=== PATIENT | female | born 1995 | race Caucasian/White ===

== ENCOUNTER 2023-09-24 05:29 | Emergency (ER) | payer BC, SELFPAY ==
[2023-09-24 05:38] VITALS: BP 145/96; PULSE 86; RESP 18; TEMP 36.6; O2SAT 99; BMI 50.2
[2023-09-24 06:07] VITALS: TEMP 36.6
[2023-09-24] MEDS: HYDROCODONE-ACETAMIN 5-325 MG 1 TAB PO (06:07)
[2023-09-24] MEDS: predniSONE 10 MG TABLET 20 MG PO (06:08)
[2023-09-24] MEDS: GABAPENTIN 300 MG CAPSULE PO (06:08)
--- NOTE | 2023-09-24 06:14 | ED_ITS ---
HPI - General Adult General Chief complaint: Back Injury/Pain Stated complaint: back pain Time Seen by Provider: 09/24/23 05:44 Source: patient Mode of arrival: ambulatory Limitations: no limitations History of Present Illness HPI narrative: 28-year-old female presents the emergency department with increased pain in her lower back radiating to the left leg. This has been an ongoing problem for the past 6 weeks. She has been evaluated by both her primary care provider and also her specialist at [facility]. She reports that she has had an MRI which has shown inflammation at L4-L5 on the left side which does match with her symptoms. She reports that she has been prescribed cyclobenzaprine and Celebrex which she has been taking. Pain started to increase yesterday evening and is worse this morning. Feels like she cannot function and go to work today. No loss of bowel or bladder control, no weakness in the leg, no numbness or tingling. Radicular pain is similar to what she was experiencing when the pain 1st started. On specific questioning, it sounds as though she was on prednisone and also some gabapentin earlier on in the course of the injury but as her pain started to improve a couple of weeks ago, she discontinued these. She was also given some oxycodone early in the illness and is out of those as well. She did not try taking any Tylenol or any other interventions prior to coming to the ED today. Of note it looks like she has been using the new [place] [facility], but not in the last few weeks. Does not look like she has been getting narcotic prescriptions from anyone in the last few weeks. No new trauma or injury that set things off in the last few days. Past medical history notable for PCOS and mood disorder. Reports that her home meds are lamotrigine 100 b.i.d., Celebrex and cyclobenzaprine. Last use of the cyclobenzaprine was last night, typically only using every few days. Nonsmoker. ROS notable for the musculoskeletal symptoms as described above. Otherwise neg ative for other musculoskeletal, generalized, skin or neurological changes. Related Data Home Medications Medication Instructions Recorded Confirmed celecoxib 100 mg capsule 100 mg PO BID PRN 09/24/23 09/24/23 cyclobenzaprine 5 mg tablet 5 - 10 mg PO 3XD PRN 09/24/23 09/24/23 lamotrigine 100 mg tablet 100 mg PO BID 09/24/23 09/24/23 Previous Rx's Medication Instructions Recorded gabapentin 300 mg capsule 300 mg PO BID PRN nerve pain #50 09/24/23 caps prednisone 20 mg tablet 20 mg PO DAILY 3 days #3 tabs 09/24/23 Allergies Allergy/AdvReac Type Severity Reaction Status Date / Time No Known Drug Allergies [facility] Ver[facility] 09/24/23 05:[address] [facility] Social History Smoking Status: Never smoker Second hand tobacco smoke exposure: No How often do you have a drink containing alcohol: never How often do you have six or more drinks on one occasion: Never AUDIT-C Alcohol total score: 0 Non-prescribed substance use: denies use Exam Const: Vital Signs, click to edit/add: Vital Signs - 24 hr 09/24/23 05:38 09/24/23 06:07 Temperature 97.9 F 97.9 F Pulse Rate [Right Pulse Oximeter] 86 Respiratory Rate 18 Blood Pressure [Ri ght Upper Arm] 145/96 H Pulse Oximetry 99 Oxygen Delivery Me thod Room Air Documenting provider has reviewed patient's vital signs: yes Common normals: no apparent distress Other: Awake alert, no intoxication or impairment HENMT: Common normals: normocephalic Head and scalp: normocephalic Mouth: oral and palatal mucosa normal Eye: General eye: normal appearance of both eyes Resp: Common normals: normal respiratory effort and clear to auscultation bilaterally Effort & inspection: able to speak in complete sentences Auscultation: clear to auscultation bilaterally Cardio: Common normals: regular rate, regular rhythm, S1 normal heart sound, S2 normal heart sound and no murmurs Rate: regular rate Rhythm: regular rhythm Heart sounds: S1 normal and S2 normal Back & Pelvis: Other: Paraspinal muscle tenderness noted on the left, L2 through L5 area. Mild bilateral SI tenderness noted. No point bony midline tenderness. No bruising or deformity. No step-offs noted. Pain is increased with straight leg lift on the left, nothing on the right but on the left it is a complete arc not just the 30-70 degrees. Sensation is intact bilaterally, strength is normal bilaterally in the legs. Extremity: Common normals: no pedal edema Neuro: Speech: speech normal Motor exam: strength 5/5 throughout and no movement abnormalities noted Psych: Mood and affect: euthymic mood Insight: insight good Judgement: judgment good Skin: Common normals: no rashes or lesions noted General skin exam: no rashes or lesions noted Course Course ED Course: Left lumbar radiculopathy with no signs of neurological emergency. Patient has already had advanced imaging demonstrating pathology that matches with history and exam. Slightly increased pain today with no red flags of major concern. Counseled patient that I think she would benefit from another short course of prednisone. Will prescribe 20 mg twice daily today and then once daily for the next 2 days. She will continue on her Celebrex and cyclobenzaprine. Gabapentin 300 mg up to t.i.d. as needed for pain, start with 2 times daily for the next 3 days, then wean and titrate as needed. Will be given 1 hydrocodone tablet here in the ED no additional narcotics to take at home. Work note given for today. Patient will update her specialist at [facility] if she is not beginning to get good relief within the next 4 hours. Alarm symptoms reviewed that would warrant ED presentation. She verbalizes understanding and agreement Vital Signs Vital signs: Initial Vital Signs Temperature 97.9 F 09/24/23 05:38 Temperature Source Temporal Artery Scan 09/24/23 05:38 Pulse Rate 86 09/24/23 05:38 Respiratory Rate 18 09/24/23 05:38 Blood Pressure 145/96 H 09/24/23 05:38 Blood Pressure Mean 112 H 09/24/23 05:38 Blood Pressure Position Sitting 09/24/23 05:38 Pulse Oximetry 99 09/24/23 05:38 Oxygen Delivery Method Room Air 09/24/23 05:38 Vital Signs Temperature 97.9 F 09/24/23 05:38 Pulse Rate 86 09/24/23 05:38 Respiratory Rate 18 09/24/23 05:38 Blood Pressure 145/96 H 09/24/23 05:38 Pulse Oximetry 99 09/24/23 05:38 Oxygen Delivery Method Room Air 09/24/23 05:38 Temperature 97.9 F 09/24/23 06:07 Pulse Rate 86 09/24/23 05:38 Respiratory Rate 18 09/24/23 05:38 Blood Pressure 145/96 H 09/24/23 05:38 Pulse Oximetry 99 09/24/23 05:38 Oxygen Delivery Method Room Air 09/24/23 05:38 Medications Administered Medications: Generic Name Dose Route Start Last Admin Trade Name [place] PRN Reason Stop Dose Admin Hydrocodone Bitart/Acetaminophen 1 tab 09/24/23 06:03 09/24/23 06:07 Hydrocodone-Acetamin 5-325 Mg 1 Tab PO 09/24/23 06:04 1 tab ONCE ONE Administration Gabapentin 300 mg 09/24/23 06:04 09/24/23 06:08 Gabapentin 300 Mg Capsule PO 09/24/23 06:05 300 mg ONCE ONE Administration Prednisone 20 mg 09/24/23 06:03 09/24/23 06:08 Prednisone 10 Mg Tablet PO 09/24/23 06:04 20 mg ONCE ONE Administration Discharge Plan Discharge Clinical Impression: Lumbar radiculopathy Patient Disposition: Home w/ Parent or Adult Condition: Stable Instructions: Lumbar Radiculopathy (ED) Additional Instructions: As we discussed, your exam and history are consistent with your known nerve impingement at L4/L5 on the left side. I do not see any other etiology for your pain today. There are no red flags that would indicate sudden neurological emergency which is reassuring. Continue taking her Celebrex as prescribed. Continue using your cyclobenzaprine or your muscle relaxer as prescribed as well. I would like for you to be on a short course of prednisone. We have given you 20 mg this morning. You will mushroom picker an additional prescription for another 3 tablets. Take another tablet this afternoon between 2 and 5:00 p.m.. Then continue the last 2 tablets once in the morning on Wednesday and Wednesday. I have started you on gabapentin. It sounds as though this medicine was pr escribed previously as well. I would like for you to start with twice daily. After 3 days, you may increase it to 3 times daily if needed for the nerve pain. I would recommend that you take 1 tablet at bedtime every night and increase to during the day if needed after things get back under control in the next day or 2. I agree that starting physical therapy is your best chance of success with this long-term. Sometimes the pain worsens with this before it gets better. Because of this, I have given you plenty of the gabapentin tablets. Keep your appointment as planned with the back specialist. If you have sudden loss of bowel or bladder control or sudden weakness in the leg, you should seek care and an emergency department. I can give you a work note for today. It is also safe to take Tylenol 1000 mg every 6 hours for pain and I strongly encourage you to do so. You may stand the Tylenol at this dose for months. Activity Level: Activity as Tolerated Discharge Diet: Regular Prescriptions: New prednisone 20 mg tablet 20 mg PO DAILY 3 Days Qty: 3 0RF gabapentin 300 mg capsule 300 mg PO BID PRN (Reason: nerve pain) Qty: 50 0RF Rx Instructions: may increase to 3x per day if needed after 3 days. No Action celecoxib 100 mg capsule 100 mg PO BID PRN lamotrigine 100 mg tablet 100 mg PO BID cyclobenzaprine 5 mg tablet 5 - 10 mg PO 3XD PRN Stand Alone Forms: [employer] Info Instructions
== END 2023-09-24 06:40 | disposition home or self-care (01) ==
PROVIDERS: Emergency Provider Family Medicine
DX: M54.16 Radiculopathy, lumbar region (principal)
CPT/HCPCS: 99283; 99284; A9270; J7512